=== PATIENT | female | born 2000 | race Caucasian/White ===

== ENCOUNTER 2019-03-05 05:34 | Inpatient (IN) ==
[2019-03-05] MEDS: LACTATED RINGERS 1,000 ML IV SCH (06:48)
[2019-03-05] MEDS ORDERED: ONDANSETRON 4 MG/2 ML VIAL IV PRN (06:50)
[2019-03-05] MEDS ORDERED: MEPERIDINE 50 MG/1 ML VIAL IV PRN (06:50)
[2019-03-05 07:03] LABS: Basophils % 0.2 % (0.0-0.8); Eosinophils # 0.2 10*3/uL (0.0-0.87); Eosinophils % 1.5 % (0.00-10.9); Hemoglobin 9.4 GM/DL (12.0-16.0); Immature Granulocytes % 1.9 %; Immature Granulocytes Absolute 0.27 #; Lymphocytes # 1.8 10*3/uL (1.4-4.0); Lymphocytes % 13.2 % (21.3-54.2); Mean Corpuscular HGB Conc 30.3 GM/DL (32-36); Mean Corpuscular Volume 81.4 FL (87-102); Mean Platelet Volume 11.7 FL (9.6-12.0); NRBC # 0.02 10*3/uL; Neutrophils % 71.2 % (38.7-73.9); Platelet Count 378 T/CUMM (130-400); Red Blood Count 3.81 MC/CUMM (3.8-5.5); Red Cell Distribution Width 18.1 % (9.3-17.3); White Blood Count 13.9 T/CUMM (4-12)
[2019-03-05 07:21] LABS: Albumin 2.9 G/DL (3.4-5.0); Bilirubin,Total 0.6 MG/DL (0.2-1.0); Calcium 8.8 MG/DL (8.5-10.1); Osmolality,Calculated 275.4 MOS/KG (273-304); Total Protein 6.6 G/DL (6.4-8.3)
[2019-03-05] MEDS: BUTORPHANOL 2 MG/ML VIAL IV PRN ×2 (14:04→22:26)
[2019-03-06] MEDS ORDERED: CITRIC ACID/SODIUM CITRATE 30 ML UDCUP PO ONE (02:50)
[2019-03-06] MEDS ORDERED: FAMOTIDINE 20 MG/2 ML VIAL IV ONE (02:50)
[2019-03-06] MEDS ORDERED: ePHEDrine 50 MG/ML AMP IV PRN (02:50)
[2019-03-06] MEDS ORDERED: fentaNYL 2 MCG/ROPIV 0.2% EPID 100 ML EPIDURAL SCH (03:00)
[2019-03-06] MEDS ORDERED: LACTATED RINGERS 1,000 ML IV SCH (03:00)
[2019-03-06] MEDS: LACTATED RINGERS 1,000 ML IV SCH ×2 (03:10→03:25)
[2019-03-06 05:30] LABS: Apearance,Urine CLEAR (Clear); Bacteria,Urine Occasional /HPF (Few); Bilirubin,Urine Negative (Negative); Blood, Urine Small mg/dL (Negative); Glucose,Urine (UA) Negative (Negative); Ketones,Urine Negative (Negative); Mucus,Urine Occasional /LPF (Occasional); Nitrite,Urine Negative (Negative); Protein,Urine Negative; RBC,Urine 6 /HPF (0-4); Squamous Epithelial Cell,Urine Occasional /HPF (0-10); Urine Color Yellow (Yellow); Urine Specific Gravity 1.012 (1.001-1.035); Urine Urobilinogen < 2.0 EU/DL (0.2-1.0); WBC,Urine 1 /HPF (0-6)
[2019-03-06] MEDS ORDERED: OXYTOCIN/LR 20 UNIT/1,000 ML BAG IV SCH (08:00)
[2019-03-06] MEDS ORDERED: miSOPROStoL 200 MCG TABLET ONE (11:44)
[2019-03-06] MEDS ORDERED: METHYLERGONOVINE 0.2 MG/1 ML AMP ONE (11:44)
[2019-03-06] MEDS ORDERED: LIDOCAINE 1% 50 ML VIAL ONE (11:44)
[2019-03-06 12:30] LABS: Cord Venous Blood HCO3 18.4 MMOL/L; Cord Venous Blood PCO2 36.8 MMHG; Cord Venous Blood PO2 26.1
[2019-03-06 12:32] LABS: Cord Arterial Blood HCO3 19.7 MMOL/L
[2019-03-06] MEDS ORDERED: BENZOCAINE 20%/MENTHOL 0.5% SPRAY 56 GM CAN TOP PRN (13:52)
[2019-03-06] MEDS ORDERED: RHO(D) IMMUNE GLOBULIN 300 MCG SYRINGE IM ONE (13:52)
[2019-03-06] MEDS ORDERED: DIPH/TET/ACEL PERT BOOSTER VACCINE 0.5 ML VIAL IM ONE (13:52)
[2019-03-06] MEDS ORDERED: LANOLIN 50% CREAM 0.3 OZ TUBE TOP PRN (13:52)
[2019-03-06] MEDS ORDERED: MEASLES/MUMPS/RUBELLA VACCINE 0.5 ML VIAL SUBCUT ONE (13:52)
[2019-03-06] MEDS ORDERED: OXYTOCIN/LR 20 UNIT/1,000 ML BAG IV ONE (13:52)
[2019-03-06] MEDS ORDERED: BISACODYL 10 MG SUPP RECTAL PRN (13:52)
[2019-03-06] MEDS ORDERED: HYDROCORTISONE 2.5% RECTAL CREAM 30 GM TUBE TOP PRN (13:52)
[2019-03-06] MEDS ORDERED: WITCH HAZEL PADS 100/JAR TOP PRN (13:52)
[2019-03-06] MEDS ORDERED: ACETAMINOPHEN 325 MG TABLET PO PRN (13:52)
[2019-03-06] MEDS ORDERED: oxyCODONE/ACETAMINOPHEN 5-325 MG TABLET PO PRN ×2 (13:52)
[2019-03-06] MEDS: DOCUSATE SODIUM 100 MG CAPSULE PO SCH (20:36)
[2019-03-07] MEDS: IBUPROFEN 800 MG TABLET PO PRN ×2 (03:24→20:18)
[2019-03-07 06:44] LABS: Basophils % 0.2 % (0.0-0.8); Eosinophils # 0.1 10*3/uL (0.0-0.87); Eosinophils % 0.8 % (0.00-10.9); Hematocrit 18.3 VOL% (35.7-47.0); Immature Granulocytes % 1.4 %; Immature Granulocytes Absolute 0.23 #; Lymphocytes # 1.9 10*3/uL (1.4-4.0); Mean Corpuscular HGB Conc 30.6 GM/DL (32-36); Mean Corpuscular Volume 81.3 FL (87-102); Mean Platelet Volume 10.9 FL (9.6-12.0); Monocytes % 11.3 % (1.7-12.7); Neutrophils % 74.3 % (38.7-73.9); Red Cell Distribution Width 18.4 % (9.3-17.3); White Blood Count 15.9 T/CUMM (4-12)
[2019-03-07 06:48] LABS: Hemoglobin 5.6 GM/DL (12.0-16.0); Platelet Count 267 T/CUMM (130-400); Red Blood Count 2.25 MC/CUMM (3.8-5.5)
[2019-03-07] MEDS ORDERED: SODIUM CHLORIDE 0.9% 1,000 ML IV PRN (06:56)
[2019-03-07] MEDS ORDERED: FUROSEMIDE 20 MG/2 ML VIAL IV ONE ×2 (06:59→13:54)
[2019-03-07] MEDS: DOCUSATE SODIUM 100 MG CAPSULE PO SCH ×2 (09:38→20:16)
[2019-03-07] MEDS: FERROUS SULFATE 325 MG TABLET PO SCH (20:16)
[2019-03-07 21:32] LABS: Hematocrit 26.3 VOL% (35.7-47.0); Hemoglobin 8.2 GM/DL (12.0-16.0)
[2019-03-08 07:28] VITALS: BP 121/74
[2019-03-08] MEDS: FERROUS SULFATE 325 MG TABLET PO SCH (11:38)
[2019-03-08] MEDS: DOCUSATE SODIUM 100 MG CAPSULE PO SCH (11:38)
[2019-03-08] MEDS ORDERED: DIPH/TET/ACEL PERT BOOSTER VACCINE 0.5 ML VIAL IM ONE (12:02)
[2019-03-08] MEDS ORDERED: MEASLES/MUMPS/RUBELLA VACCINE 0.5 ML VIAL SUBCUT ONE (12:21)
== END 2019-03-08 13:40 | disposition home or self-care (01) | DRG 560 ==
LOC: N.LDOUT 05:34 → N.LD 05:38 → N.OB 03-06 14:08
PROVIDERS: ADMIT Obstetrics & Gynecology; ATTEND Obstetrics & Gynecology